=== PATIENT | female | born 1995 | race Caucasian/White ===

== ENCOUNTER 2020-02-11 12:08 | Emergency (ER) | payer BC ==
[2020-02-11 12:12] VITALS: BP 119/77
--- NOTE | 2020-02-11 12:29 | ER Document Report ---
HPI - HPI Patient complains to provider of: Right ear pain Time Seen by Provider: 02/11/20 12:23 Onset: Last week Onset/Duration: Gradual Quality of pain: Achy Pain Level: 3 Context: Patient presents complaining of right ear pain and decreased hearing to the right ear. Patient denies any fever or drainage from the ear. Associated Symptoms: Earache. denies: Nonproductive cough, Productive cough, Fever Exacerbated by: Denies Relieved by: Denies Similar symptoms previously: Yes Recently seen / treated by doctor: No - ROS ROS below otherwise negative: Yes Systems Reviewed and Negative: Yes All other systems reviewed and negative - CONSTITUTIONAL Constitutional: DENIES: Fever - EENT EENT: REPORTS: Ear Pain. DENIES: Sore Throat - RESPIRATORY Respiratory: DENIES: Coughing - REPRODUCTIVE LMP: 3 weeks ago - DERM Skin Problems: None Past Medical History - General Information source: Patient - Social History Smoking Status: Never Smoker Frequency of alcohol use: Rare Drug Abuse: None Occupation: [employer] sales Family History: Reviewed & Not Pertinent Psychiatric Medical History: Reports: Hx Anxiety, Hx Bipolar Disorder, Hx Depression Past Surgical History: Reports: Hx Cholecystectomy Vertical Provider Document - CONSTITUTIONAL Agree With Documented VS: Yes Exam Limitations: No Limitations General Appearance: WD/WN, No Apparent Distress - HEENT HEENT: Atraumatic, Normocephalic. negative: Pharyngeal Exudate, Pharyngeal Tenderness, Pharyngeal Erythema, Tympanic Membrane Red, Tympanic Membrane Bulging Notes: Excess cerumen against right TM - NECK Neck: Normal Inspection, Supple. negative: Lymphadenopathy-Left, Lymphadenopathy-Right - RESPIRATORY Respiratory: No Respiratory Distress - BACK Back: Normal Inspection - MUSCULOSKELETAL/EXTREMETIES Musculoskeletal/Extremeties: [place] VILLALOBOS - NEURO Level of Consciousness: Awake, Alert, Appropriate Motor/Sensory: No Motor Deficit - DERM Integumentary: Warm, Dry, No Rash Course - Re-evaluation Re-evalutation: 02/11/20 13:02 Patient reevaluated after irrigation. Patient with cerumen impaction removed, patient reports improved hearing and discomfort after irrigation. - Vital Signs Vital signs: Temp Pulse Resp BP Pulse Ox 97.7 F 97 16 119/77 99 02/11/20 12:10 02/11/20 12:10 02/11/20 12:10 02/11/20 12:10 02/11/20 12:10 - Laboratory Results Critical Laboratory Results Reviewed: No Critical Results - Radiology Results Critical Radiology Results Reviewed: No Critical Results Discharge - Discharge Clinical Impression: Impacted cerumen of right ear Condition: Stable Disposition: HOME, SELF-CARE Instructions: Cerumen Impaction ([facility]) Additional Instructions: Return immediately for any new or worsening symptoms Followup with your primary care provider as needed for recheck Referrals: [facility] [Provider Group] - Follow up as needed
== END 2020-02-11 13:12 | disposition home or self-care (01) ==
LOC: ER 12:08
DX: H61.21 Impacted cerumen, right ear (principal); H92.01 Otalgia, right ear
CPT/HCPCS: 99282